=== PATIENT | female | born 1980 | race Caucasian/White ===

== ENCOUNTER 2018-10-29 21:56 | Emergency (ER) | payer MEDICAID ==
[~2018-10-29] VITALS: Ht 162.6 cm; Wt 63.5 kg
[2018-10-29] MEDS ORDERED: FLUORESCEIN SODIUM 1 MG STRIP ONE (22:12)
[2018-10-29] MEDS ORDERED: FLUORESCEIN SODIUM 1 MG STRIP OP ONE (22:15)
[2018-10-29] MEDS ORDERED: SULFACETAMIDE SOD 10% OPHT DR 15 ML BOTTLE OP ONE (22:30)
[2018-10-29] MEDS ORDERED: SULFACETAMIDE SOD 10% OPHT DR 15 ML BOTTLE ONE (22:35)
[2018-10-29 22:53] VITALS: BP 119/86
== END 2018-10-29 22:54 | disposition home or self-care (01) ==
LOC: ER 21:58
DX: S05.01XA Injury of conjunctiva and corneal abrasion without foreign body, right eye, initial encounter (principal); X58.XXXA Exposure to other specified factors, initial encounter; Y93.89 Activity, other specified; Y92.89 Other specified places as the place of occurrence of the external cause; Y99.8 Other external cause status
CPT/HCPCS: A4663